=== PATIENT | female | born 1940 | race Caucasian/White ===

== ENCOUNTER 2023-09-29 08:03 | Emergency (ER) | payer MEDICARE, SELFPAY ==
[2023-09-29 08:11] VITALS: BP 207/110
[2023-09-29 08:47] LABS: % Basophils 0.6 % (0-2); % Eosinophils 1.7 % (0-6); % Immature Granulocytes 0.2 % (0-0.5); % Lymphocytes 21.6 % (20.5-51.1); % Monocytes 5.6 % (1.7-9.3); % Neutrophils 70.3 % (42.2-75.2); Absolute Eosinophils 0.1 10^3/uL (0-0.7); Absolute Lymphocytes 1.2 10^3/uL (1.2-3.4); Absolute Monocytes 0.3 10^3/uL (0.1-0.6); Absolute Neutrophils 3.8 10^3/uL (1.4-6.5); Hematocrit 41.9 % (37.0-47.0); Hemoglobin 14.3 g/dL (12.0-16.0); Mean Corp Hgb Conc. 34.1 g/dL (33.0-37.0); Mean Corpuscular Hgb 30.2 pg (27.0-31.0); Mean Corpuscular Volume 88.6 fL (81.0-99.0); Mean Platelet Volume 10.4 fL (7.4-10.4); Nucleated Red Blood Cells % 0 %; Platelet Count 224 10^3/uL (130-400); Red Blood Cell Count 4.73 10^6/uL (4.20-5.40); Red Cell Dist. Width 12.2 % (11.5-14.5); White Blood Cell Count 5.4 10^3/uL (4.8-10.8)
[2023-09-29 08:53] VITALS: BP 218/90
[2023-09-29 08:56] VITALS: BMI 26.8
[2023-09-29 08:57] VITALS: BP 218/90
[2023-09-29 09:00] VITALS: BP 194/91
[2023-09-29 09:01] LABS: ALT (SGPT) 30 U/L (0-35); AST (SGOT) 29 U/L (14-36); Albumin 4.8 g/dl (3.5-5.0); Alkaline Phosphatase 110 U/L (38-126); Blood Urea Nitrogen 12 mg/dl (7-17); Calcium 11.2 mg/dl (8.4-10.2); Carbon Dioxide 26 mmol/L (22-30); Chloride 103 mmol/L (98-107); Estimated Creatinine Clearance 54 ml/min; Glucose 112 mg/dl (70-99); Sodium 136 mmol/L (135-145); Total Bilirubin 1.3 mg/dl (0.2-1.3); Total Protein 7.8 g/dl (6.3-8.2); eGFR > 60.00
--- NOTE | 2023-09-29 09:08 | ED.GENMED ---
History of Present Illness
General
Chief Complaint: Blood Pressure Problem
Source: patient
Exam Limitations: none
Time Seen by Provider: 09/29/23 08:56
Travel History
Have you had any contact with someone who has COVID-19?: No
Do you have any symptoms of coronavirus? Fever > 100 degrees, chills, cough, shortness of breath, sore throat, loss of taste or smell, muscle aches, or headache?: No
History of Present Illness
History of Present Illness:
See MDM
Past History
Past History
ED Past Medical History: Other (Meniere's Disease)
Social History
Tobacco: Non-smoker
Alcohol: Occasional
Drug: None
Personal:
Phy Exam
Physical Exam
Physical Exam:
See MDM
Course
Orders/Labs/Results
Orders:
Orders
09/29/23 08:06
ECG [Electrocardiogram (*1)] Urgent
Reason for Study: Chest Pain
EKG- Treatment ONCE
09/29/23 08:24
CMP [Comprehensive Metabolic Panel] Urgent
Complete Blood Count/With Diff Urgent
09/29/23 09:08
Diazepam [Valium] 5 mg PO NOW STA
Abnormal Lab Results
09/29/23
08:24
Glucose 112 H mg/dl
(70-99)
Calcium 11.2 H mg/dl
(8.4-10.2)
09/29/23 08:24
09/29/23 08:24
Vital Signs
Initial and Last Documented VS:
Initial Vital Signs
Temp Pulse Resp BP Pulse Ox
98.1 F 87 20 207/110 98
09/29/23 08:11 09/29/23 08:11 09/29/23 08:11 09/29/23 08:11 09/29/23 08:11
Last Documented Vital Signs
Temp Pulse Resp BP Pulse Ox
98.1 F 78 13 196/99 96
09/29/23 08:11 09/29/23 10:15 09/29/23 10:15 09/29/23 10:00 09/29/23 10:15
MDM/Problems Addressed
Differential Diagnosis Includes:
HPI and MDM Narrative:
83-year-old female presenting with elevated blood pressure. Patient acknowledges that she feels anxious and is unsure if this is related. She had noted that her blood pressure was elevated at the dentist office as well. She is noticing that her
blood pressure seems to be elevated when she does not take her Valium for her M�ni�re's disease. Patient states she was admitted to the hospital several months ago and taken off of her HCTZ/triamterene due to low sodium levels. She has since
followed up and has had repeat normal sodium levels. She was not placed back on blood pressure medicines because she states her blood pressure was stable
On arrival, patient does have an elevated blood pressure. She denies chest pain or shortness of breath. She does appear somewhat anxious. Patient states she did not take her Valium today. Will give dose of diazepam and rule out endorgan damage
with blood work and will consider adding blood pressure medicine if blood pressure remains elevated after diazepam
Physical exam
General: Well appearing and non-toxic
HEENT: protecting airway
Neck: appears supple
CV: No evidence of cyanosis. Regular rate and rhythm
Resp: No accessory muscle use
Abd: Non-distended
Extremities: No deformities. No leg edema
Neuro: alert
Psych: Mildly anxious
Skin: Intact
Problems Addressed including Acute and Chronic Conditions affecting care:
1. Asymptomatic hypertension
Acuity: acute
Prognosis: stable
Details: Unsure if this is related to being off blood pressure medicine versus anxiety. Will reassess blood pressure after giving her prescribed Valium
Updates
On reassessment after Valium, patient states she is feeling much better. She remains hypertensive. Will start amlodipine and discussed follow-up with PCP
Differential Diagnosis (but not limited to): Asymptomatic hypertension, hypertension emergency, anxiety
Testing considered: Troponin but she denies chest pain or shortness of breath
Drug therapy (if applicable): OTC meds, please see d/c instruction regarding Rx drugs
Amount and/or Complexity of Data Reviewed
Clinical info obtained from: Patient
External data reviewed: N/A
Labs I independently reviewed (but not limited to): Sodium levels normal
Radiology: N/A
Pulse Ox: not hypoxic
EKG independently reviewed: Sinus rhythm, normal axis, no STEMI
Double Surface Operator: N/A
Critical Care: N/A
Risk of Complication:
Social Determinants of health: Good social support
Discussed with other providers: N/A
Escalation of Care includes Admit/Obs: After being observed in the Emergency Department, pt stable for discharge.
Occasional wrong word or 'sound a like' substitutions may have occurred due to the inherent limitations of voice recognition software. Read the chart carefully and recognize, using context, where substitutions have occurred.
*Critical Care Note
Total Time (30-74mins, 75-104mins- exclusive of procedures): Not Applicable
ED Attending Note
-
Portions of this chart may have been created with voice recognition software.� Occasional wrong word or��sound alike� substitutions may have occurred due to the inherent limitations of voice recognition software.
Discharge Plan
Departure
Patient Disposition: Home (Routine Discharge)
Date of Disposition: 09/29/23
Time of Disposition: 10:54
Patient with high blood pressure during this ER visit?: Yes
Discharge Problem:
HTN (hypertension)
Instructions: BLOOD PRESSURE
Prescriptions:
New
diazepam [Valium] 2 mg tablet
2 mg PO BID PRN (Reason: dizziness) Qty: 20 0RF
amlodipine 5 mg tablet
5 mg PO DAILY Qty: 30 0RF
No Action
aspirin 81 mg Tablet,Delayed Release (Dr/Ec)
81 mg PO DAILY
ascorbic acid (vitamin C) [Vitamin C] 500 mg Tablet
500 mg PO DAILY
diazepam 5 mg tablet
5 mg PO BID
Centrum 18-400 mg-mcg Tablet
1 tab PO DAILY
Referrals:
Elda Zuleta CRNP [Family Provider] -
Activity Restrictions/Additional Instructions:
Please return for any worsening symptoms.
You may return at any time if you have further concerns.
Please follow up with your doctor at the first available appointment, preferably this week.
Please discuss your uncontrolled high blood pressure.
Thank you for choosing [facility].
Interventions
Interventions:
*Risk Screen - Suicide Last Done: 09/29/23 09:31
*General Assessment Last Done: 09/29/23 09:31
*Neglect/Abuse Screening Last Done: 09/29/23 09:31
ED- Fall Risk Assessment Last Done: 09/29/23 09:35
*ED COVID-19 Vaccine History Last Done: 09/29/23 08:11
ED- Cardiac Assessment Last Done: 09/29/23 09:35
ED- Neurological Assessment Last Done: 09/29/23 09:35
ED- Pulmonary Assessment Last Done: 09/29/23 09:35
Discharge Date and Time
Print Language: CITIZEN [place]
[2023-09-29] MEDS: VALIUM 5 MG PO (09:17)
[2023-09-29 10:00] VITALS: BP 196/99
[2023-09-29] MEDS: NORVASC 5 MG PO (11:22)
[2023-09-29 11:37] VITALS: BP 193/98
== END 2023-09-29 11:42 | disposition home or self-care (01) ==
LOC: EMR 08:03
PROVIDERS: Emergency Medicine; EMERGENCY PHYSICIAN Student in an Organized Health Care Education/Training Program; FAMILY PHYSICIAN Nurse Practitioner Family
DX: I10 Essential (primary) hypertension (principal)
CPT/HCPCS: 99284; 80053; 85025; 93005

== ENCOUNTER 2023-10-01 10:13 | Emergency (ER) | payer MEDICARE, SELFPAY ==
[2023-10-01 10:18] VITALS: BP 161/82
[2023-10-01 10:46] LABS: % Basophils 0.3 % (0-2); % Eosinophils 1.6 % (0-6); % Immature Granulocytes 0.3 % (0-0.5); % Lymphocytes 16.2 % (20.5-51.1); % Monocytes 5.2 % (1.7-9.3); % Neutrophils 76.4 % (42.2-75.2); Absolute Eosinophils 0.1 10^3/uL (0-0.7); Absolute Lymphocytes 1.1 10^3/uL (1.2-3.4); Absolute Monocytes 0.4 10^3/uL (0.1-0.6); Absolute Neutrophils 5.1 10^3/uL (1.4-6.5); Hematocrit 40.1 % (37.0-47.0); Hemoglobin 14.5 g/dL (12.0-16.0); Mean Corp Hgb Conc. 36.2 g/dL (33.0-37.0); Mean Corpuscular Hgb 30.7 pg (27.0-31.0); Mean Corpuscular Volume 84.8 fL (81.0-99.0); Nucleated Red Blood Cells % 0 %; Red Blood Cell Count 4.73 10^6/uL (4.20-5.40); Red Cell Dist. Width 12.2 % (11.5-14.5); White Blood Cell Count 6.7 10^3/uL (4.8-10.8)
[2023-10-01 11:20] VITALS: BP 151/77
--- NOTE | 2023-10-01 11:21 | PHANOTE ---
med rec note- patient stated that she was recently here (09/29/23) the er md called in two prescription for her and she refused the diazepam 2mg bid prn be cause she thought it would be too much with her 5mg bid, but she ran out of the 5mg on
09/24/23 earlier then what the prescription was written for cause she been taking it tid instead of bid. she only paid for the Norvasc 5mg daily.
[2023-10-01 11:24] LABS: ALT (SGPT) 29 U/L (0-35); AST (SGOT) 32 U/L (14-36); Alkaline Phosphatase 106 U/L (38-126); Blood Urea Nitrogen 16 mg/dl (7-17); Calcium 11.7 mg/dl (8.4-10.2); Carbon Dioxide 23 mmol/L (22-30); Chloride 98 mmol/L (98-107); Glucose 115 mg/dl (70-99); Potassium 3.8 mmol/L (3.5-5.1); Sodium 136 mmol/L (135-145); Total Bilirubin 1.6 mg/dl (0.2-1.3); Total Protein 8.1 g/dl (6.3-8.2); eGFR > 60.00
--- NOTE | 2023-10-01 11:26 | ED.GENMED ---
History of Present Illness
General
Chief Complaint: Change in Mental Status
Time Seen by Provider: 10/01/23 10:57
Travel History
Have you had any contact with someone who has COVID-19?: No
Do you have any symptoms of coronavirus? Fever > 100 degrees, chills, cough, shortness of breath, sore throat, loss of taste or smell, muscle aches, or headache?: No
History of Present Illness
History of Present Illness:
83-year-old female with history of hypertension and M�ni�re's disease on chronic benzodiazepines presents to the emergency department for evaluation of intermittent confusion that began yesterday. She reports that she ran out of her diazepam
recently and is not due for refill. She has been forgetful but overall is alert and oriented for me. Denies any chest pain or difficulty breathing. No headaches or vision changes.
Past History
Past History
ED Past Medical History: Other (Meniere's Disease)
Social History
Tobacco: Non-smoker
Alcohol: Occasional
Drug: None
Personal:
Review of Systems
Review of Systems
Allergies reviewed?: Yes
All Other Systems: ROS reviewed and negative except as documented in HPI and ROS
Phy Exam
Physical Exam
Physical Exam:
GEN: Well appearing, NAD, WDWN
HEENT: Oral mucosa moist, no scleral icterus
Cardiac: Regular rate and rhythm, no murmurs
Lung: No respiratory distress, no tachypnea, lungs clear to auscultation bilaterally
MSK: No gross deformity or injuries
Skin: Good color, no pallor or jaundice, no rashes
Neuro: AO x3, moves all extremities freely, normal strength bilateral upper and lower extremities
Psych: Calm, cooperative
Course
Orders/Labs/Results
Orders:
Orders
10/01/23 10:35
CMP [Comprehensive Metabolic Panel] Urgent
Complete Blood Count/With Diff Urgent
10/01/23 11:28
CT Head W/o Iv Contrast Urgent
Comment:
Reason For Exam: confusion
10/01/23 11:29
Urinalysis Reflex To Culture Urgent
Date Specimen was Collected: 10/01/23
Time Specimen was Collected: 11:54
10/01/23 12:10
Diazepam [Valium] 5 mg PO NOW STA
Abnormal Lab Results
10/01/23
10:35
Absolute Lymphs (auto) 1.1 L 10^3/uL
(1.2-3.4)
Neutrophils % 76.4 H %
(42.2-75.2)
Lymphocytes % 16.2 L %
(20.5-51.1)
Glucose 115 H mg/dl
(70-99)
Calcium 11.7 H mg/dl
(8.4-10.2)
Total Bilirubin 1.6 H mg/dl
(0.2-1.3)
10/01/23 10:35
10/01/23 10:35
Vital Signs
Initial and Last Documented VS:
Initial Vital Signs
Temp Pulse Resp BP Pulse Ox
98.0 F 86 18 161/82 96
10/01/23 10:18 10/01/23 10:18 10/01/23 10:18 10/01/23 10:18 10/01/23 10:18
Last Documented Vital Signs
Temp Pulse Resp BP Pulse Ox
98.0 F 75 13 126/71 96
10/01/23 10:18 10/01/23 13:30 10/01/23 13:30 10/01/23 13:00 10/01/23 13:30
MDM/Problems Addressed
MDM/Problems Addressed:
Patient noted to have mild hypercalcemia which is increased compared to last ER visit 2 days ago. I did discuss with the patient it appears that she takes a multivitamin as well as occasional Tums, I recommend she discontinue this and have her
calcium rechecked within the next week by her primary care physician. I suspect that her confusion and overall anxiety is mild benzodiazepine withdrawal, she did improve symptomatically after Valium was administered in the emergency department.
*Critical Care Note
Total Time (30-74mins, 75-104mins- exclusive of procedures): Not Applicable
ED Attending Note
-
Portions of this chart may have been created with voice recognition software.� Occasional wrong word or��sound alike� substitutions may have occurred due to the inherent limitations of voice recognition software.
Discharge Plan
Departure
Patient Disposition: Home (Routine Discharge)
Date of Disposition: 10/01/23
Time of Disposition: 13:30
Patient with high blood pressure during this ER visit?: No
Discharge Problem:
Benzodiazepine withdrawal
Instructions: Prescription Drug Withdrawal (DC)
Prescriptions:
New
diazepam 5 mg tablet
5 mg PO BID 8 Days Qty: 16 0RF
Rx Instructions:
[facility] before next chronic refill on 10/09/2023
No Action
aspirin 81 mg Tablet,Delayed Release (Dr/Ec)
81 mg PO DAILY
ascorbic acid (vitamin C) [Vitamin C] 500 mg Tablet
500 mg PO DAILY
diazepam 5 mg tablet
5 mg PO BID
Patient Comments:
10/01/23--patient said she been taking 5mg tid instead of bid and ran out early.
Centrum 18-400 mg-mcg Tablet
1 tab PO DAILY
amlodipine 5 mg tablet
5 mg PO DAILY Qty: 30 0RF
Referrals:
Elda Zuleta CRNP [Family Provider] -
Interventions
Interventions:
*Risk Screen - Suicide Last Done: 10/01/23 14:01
*General Assessment Last Done: 10/01/23 14:01
*Neglect/Abuse Screening Last Done: 10/01/23 14:01
ED- Fall Risk Assessment Last Done: 10/01/23 13:12
*Nursing Disposition Last Done: 10/01/23 14:01
ED- Neurological Assessment Last Done: 10/01/23 13:12
ED- Cardiac Assessment Last Done: 10/01/23 13:12
ED Swallowing Screen Last Done: 10/01/23 13:12
Discharge Date and Time
Discharge Date/Time: 10/01/23 14:02
Print Language: [id number]
[2023-10-01 12:02] VITALS: BP 155/66
[2023-10-01] MEDS: VALIUM 5 MG PO (12:24)
[2023-10-01 13:00] VITALS: BP 126/71
== END 2023-10-01 14:02 | disposition home or self-care (01) ==
LOC: EMR 10:13
PROVIDERS: Emergency Medicine; EMERGENCY PHYSICIAN Emergency Medicine; FAMILY PHYSICIAN Nurse Practitioner Family
DX: F13.239 Sedative, hypnotic or anxiolytic dependence with withdrawal, unspecified (principal); I10 Essential (primary) hypertension; E83.52 Hypercalcemia
CPT/HCPCS: 99284; 70450; 80053; 85025

== ENCOUNTER → 2023-11-01 06:40 | Outpatient (REF) | payer MEDICARE, SELFPAY ==
[2023-11-01 07:19] LABS: Ionized Calcium 1.38 mMOL/L (1.15-1.33)
[2023-11-01 07:57] LABS: ALT (SGPT) 40 U/L (0-35); AST (SGOT) 31 U/L (14-36); Albumin 4.9 g/dl (3.5-5.0); Alkaline Phosphatase 144 U/L (38-126); Blood Urea Nitrogen 16 mg/dl (7-17); Calcium 11.6 mg/dl (8.4-10.2); Carbon Dioxide 30 mmol/L (22-30); Chloride 99 mmol/L (98-107); Glucose 112 mg/dl (70-99); HDL Cholesterol 96 mg/dl; LDL Cholesterol, Calculated 170 mg/dl; Potassium 4.1 mmol/L (3.5-5.1); Sodium 142 mmol/L (135-145); Total Bilirubin 1.4 mg/dl (0.2-1.3); Total Cholesterol 307 mg/dl (50-199); Total Protein 8.2 g/dl (6.3-8.2); Triglyceride 206 mg/dl (10-149); Very Low Density Lipoprotein 41 mg/dl (0-30); eGFR > 60.00
[2023-11-01 08:13] LABS: TSH Reflex To Free T4 2.62 uIU/ml (0.47-4.68)
[2023-11-02 13:19] LABS: Intact PTH 46.1 pg/ml (13.6-85.8)
== END ==
LOC: REG 06:40
PROVIDERS: ATTENDING PHYSICIAN Family Medicine
DX: E78.00 Pure hypercholesterolemia, unspecified (principal); I10 Essential (primary) hypertension; E83.52 Hypercalcemia
CPT/HCPCS: 36415; 80053; 80061; 82330; 83970; 84443

== ENCOUNTER → 2024-01-31 07:21 | Outpatient (REF) | payer MEDICARE, SELFPAY ==
[2024-01-31 10:05] LABS: ALT (SGPT) 30 U/L (0-35); AST (SGOT) 30 U/L (14-36); Albumin 4.7 g/dl (3.5-5.0); Alkaline Phosphatase 115 U/L (38-126); Blood Urea Nitrogen 20 mg/dl (7-17); Calcium 11.2 mg/dl (8.4-10.2); Carbon Dioxide 32 mmol/L (22-30); Chloride 100 mmol/L (98-107); Glucose 96 mg/dl (70-99); HDL Cholesterol 82 mg/dl; LDL Cholesterol, Calculated 181 mg/dl; Potassium 4.5 mmol/L (3.5-5.1); Sodium 139 mmol/L (135-145); Total Bilirubin 0.9 mg/dl (0.2-1.3); Total Cholesterol 292 mg/dl (50-199); Total Protein 7.4 g/dl (6.3-8.2); Triglyceride 147 mg/dl (10-149); Very Low Density Lipoprotein 29 mg/dl (0-30); eGFR > 60.00
[2024-01-31 10:44] LABS: Glycohemoglobin (HgbA1c) 5.3 % (4.0-5.6)
== END ==
LOC: REG 07:21
PROVIDERS: ATTENDING PHYSICIAN Family Medicine
DX: I10 Essential (primary) hypertension (principal); E78.2 Mixed hyperlipidemia; R73.01 Impaired fasting glucose
CPT/HCPCS: 36415; 80053; 80061; 83036

== ENCOUNTER → 2024-12-12 07:19 | Outpatient (REF) | payer MEDICARE, SELFPAY ==
[2024-12-12 07:54] LABS: % Basophils 0.5 % (0-2); % Eosinophils 2.6 % (0-6); % Immature Granulocytes 0.3 % (0-0.5); % Lymphocytes 23.2 % (20.5-51.1); % Monocytes 6.5 % (1.7-9.3); % Neutrophils 66.9 % (42.2-75.2); Absolute Eosinophils 0.2 10^3/uL (0-0.7); Absolute Lymphocytes 1.5 10^3/uL (1.2-3.4); Absolute Monocytes 0.4 10^3/uL (0.1-0.6); Absolute Neutrophils 4.4 10^3/uL (1.4-6.5); Hematocrit 43.7 % (37.0-47.0); Hemoglobin 14.7 g/dL (12.0-16.0); Mean Corp Hgb Conc. 33.6 g/dL (33.0-37.0); Mean Corpuscular Hgb 30.2 pg (27.0-31.0); Mean Corpuscular Volume 89.9 fL (81.0-99.0); Mean Platelet Volume 10.2 fL (7.4-10.4); Nucleated Red Blood Cells % 0 %; Platelet Count 208 10^3/uL (130-400); Red Blood Cell Count 4.86 10^6/uL (4.20-5.40); Red Cell Dist. Width 12.3 % (11.5-14.5); White Blood Cell Count 6.5 10^3/uL (4.8-10.8)
[2024-12-12 08:53] LABS: ALT (SGPT) 50 U/L (0-35); AST (SGOT) 34 U/L (14-36); Albumin 5.1 g/dl (3.5-5.0); Alkaline Phosphatase 125 U/L (38-126); Blood Urea Nitrogen 18 mg/dl (7-17); Calcium 11.1 mg/dl (8.4-10.2); Carbon Dioxide 28 mmol/L (22-30); Chloride 105 mmol/L (98-107); Glucose 111 mg/dl (70-99); HDL Cholesterol 79 mg/dl; LDL Cholesterol, Calculated 112 mg/dl; Potassium 4.4 mmol/L (3.5-5.1); Sodium 144 mmol/L (135-145); Total Bilirubin 1.2 mg/dl (0.2-1.3); Total Cholesterol 227 mg/dl (50-199); Total Protein 8.3 g/dl (6.3-8.2); Triglyceride 183 mg/dl (10-149); Very Low Density Lipoprotein 36 mg/dl (0-30); eGFR > 60.00
== END ==
LOC: REG 07:19
PROVIDERS: ATTENDING PHYSICIAN Family Medicine
DX: I10 Essential (primary) hypertension (principal); E78.2 Mixed hyperlipidemia; E83.52 Hypercalcemia
CPT/HCPCS: 36415; 80053; 80061; 82330; 83970; 84443; 85025